=== PATIENT | male | born 1985 | race Caucasian/White ===

== ENCOUNTER → 2020-12-07 | Outpatient (CLI) | payer BC | END | disposition home or self-care (01) | LOC: RAH 11:44 | PROVIDERS: ATTEND Physical Medicine & Rehabilitation | DX: M54.5 Low back pain (principal); M54.2 Cervicalgia | CPT/HCPCS: 72040; 72110 ==

== ENCOUNTER → 2020-12-27 | Outpatient (CLI) | payer BC | END | disposition home or self-care (01) | LOC: RAH 10:15 | PROVIDERS: ATTEND Physical Medicine & Rehabilitation | DX: M41.85 Other forms of scoliosis, thoracolumbar region (principal); M54.5 Low back pain | CPT/HCPCS: 72081 ==

== ENCOUNTER → 2023-01-01 | Outpatient (CLI) | payer BC | END | disposition home or self-care (01) | LOC: RAH 09:06 | PROVIDERS: ATTEND Family Medicine | DX: M99.05 Segmental and somatic dysfunction of pelvic region (principal); M25.551 Pain in right hip; M25.552 Pain in left hip | CPT/HCPCS: 72195 ==

== ENCOUNTER → 2023-01-02 | Outpatient (CLI) | payer BC | END | disposition home or self-care (01) | LOC: RAH 07:52 | PROVIDERS: ATTEND Family Medicine | DX: M25.552 Pain in left hip (principal); M25.551 Pain in right hip; M99.05 Segmental and somatic dysfunction of pelvic region | CPT/HCPCS: 73721 ==